=== PATIENT | female | born 1955 | race Caucasian/White ===

== ENCOUNTER 2021-02-13 07:03 | Day surgery (SDC) | payer MEDICARE, OTHER ==
[~2021-02-13] VITALS: Ht 165.1 cm; Wt 72.6 kg
[~2021-02-13 07:03] MED LIST: JOINT SUPPORT1 CAP PO; MULTI VIT PO; OS-CAL 500500 M1 PO; SUPER BIOTIN5000 MC1 PO
[2021-02-13 08:59] VITALS: BP 119/71
== END 2021-02-13 09:08 | disposition home or self-care (01) ==
LOC: ENDO 07:03 → ORM 08:00 → ENDO 08:00 → ORM 10:00
PROVIDERS: ATTEND Surgery
PROC: 0DJD8ZZ Inspection of Lower Intestinal Tract, Via Natural or Artificial Opening Endoscopic (ICD-10-PCS; principal; 2021-02-13)
DX: Z12.11 Encounter for screening for malignant neoplasm of colon (principal); Z86.010 Personal history of colon polyps